=== PATIENT | female | born 1950 | race Caucasian/White ===

== ENCOUNTER → 2016-07-20 | Outpatient (CLI) | payer OTHER | LOC: BRMIMAGING 11:39 | PROVIDERS: ATTEND Internal Medicine | DX: D25.9 Leiomyoma of uterus, unspecified (principal) | CPT/HCPCS: 76856-PO ==

== ENCOUNTER → 2016-10-27 | Outpatient (CLI) | payer OTHER | LOC: BMCIMAGING 08:36 | PROVIDERS: ATTEND Nurse Practitioner Adult Health | DX: Z12.31 Encounter for screening mammogram for malignant neoplasm of breast (principal) | CPT/HCPCS: G0202 ==

== ENCOUNTER → 2016-11-23 | Outpatient (CLI) | payer OTHER | LOC: BMCIMAGING 10:56 | PROVIDERS: ATTEND Nurse Practitioner Adult Health | DX: Z13.820 Encounter for screening for osteoporosis (principal); M81.0 Age-related osteoporosis without current pathological fracture ==

== ENCOUNTER 2017-05-01 14:46 | Emergency (ER) | payer OTHER ==
[2017-05-01 14:51] VITALS: TEMP 97.7; O2SAT 96
--- NOTE | 2017-05-01 14:58 | CPEKG ---
Heart Rate: 64 RR Interval: 938 P-R Interval: 140 QRSD Interval: 90 QT Interval: 388 QTC Interval: 401 P [place]: 18 QRS [place]: 29 T Wave [place]: 35 EKG Severity - NORMAL ECG - EKG Impression: SINUS RHYTHM Electronically Signed By: Iman Weller 01-May-2017 17:54:48
--- NOTE | 2017-05-01 15:07 | EDPHY ---
H & P Time Seen by Provider: 05/01/17 14:56 HPI/ROS: CHIEF COMPLAINT: Chest pain HISTORY OF PRESENT ILLNESS: The patient is a 66 y/o female with a history of CAD complaining of chest pain and an irregular heart beat. She has had an intermittent heart beat for several years, but today it has become more frequent. There are usually 3-4 beats together lasting around 10 seconds, but it is not a rapid rate. Associated with left sided cp while the palpitations last, several seconds. Took Bystolic today with no relief of symptoms. She has been drinking fluids regularly. This past week she also had cold like symptoms with a fever on Wednesday night, 4 days ago. Her cold symptoms have been improving since yesterday. Denies an increase in caffeine use. Denies shortness of breath, weakness or paresthesias, abdominal pain or other pertinent symptoms. During her previous NV it felt like an " "elephant was on her chest" and she had several syncopal episodes. No recent similar sx. Previously diagnosed with PVC's on Holter monitoring. REVIEW OF SYSTEMS: Aside from elements discussed in the HPI, a comprehensive 10-point review of systems was reviewed and is negative. Past Medical/Surgical History: NV, 2 stents Social History: , lives in [place], retired Smoking Status: Former smoker Physical Exam: General Appearance: Alert, no distress Eyes: Pupils equal and round, no conjunctival pallor or injection ENT, Mouth: Mucous membranes moist Neck: Normal inspection Respiratory: Lungs are clear to auscultation Cardiovascular: Regular rate and rhythm Gastrointestinal: Abdomen is soft and non-tender Neurological: A&O, nonfocal, normal gait Skin: Warm and dry, no rash Extremities: Nontender, no pedal edema Psychiatric: Mood and affect normal Constitutional: Initial Vital Signs Temperature (C) 36.5 C 05/01/17 14:48 Heart Rate 77 05/01/17 14:48 Respiratory Rate 16 05/01/17 14:48 Blood Pressure 156/80 H 05/01/17 14:48 O2 Sat (%) 96 05/01/17 14:48 O2 Delivery Mode Room Air Allergies/Adverse Reactions: acetaminophen [From Percocet] Allergy (Verified 05/01/17 14:51) oxycodone HCl [From Percocet] Allergy (Verified 05/01/17 14:51) Home Medications: Medication Instructions Recorded Aspirin [Aspirin 81mg (OTC)] 81 mg PO DAILY 11/16/11 Clopidogrel Bisulfate [Plavix (RX)] 75 mg PO DAILY 11/16/11 Ibandronate Sodium [Boniva] 150 mg PO .QMONTH 01/26/14 Nebivolol HCl [Bystolic] 2.5 mg PO DAILY 01/26/14 Rosuvastatin Calcium [Crestor 10mg 10 mg PO HS 01/26/14 (RX)] Medical Decision Making - Diagnostics EKG Interpretation: EKG interpreted by me reveals normal sinus rhythm with a rate of 64, normal axis , normal intervals, ST and T segments normal. Similar to EKG dated 02/25/2015. Interpretation: normal EKG Imaging Results: Imaging Impressions Chest X-Ray 05/01/17 14:57 Impression: No evidence of acute cardiopulmonary abnormality. Imaging: I viewed and interpreted images myself ED Course/Re-evaluation: The patient is a 66 y/o female with a history of an NV presenting with palpitations. CP limited to few seconds during palpitations. Her symptoms today are not similar to prior cardiac sx. Her physical exam is normal. 1457: Normal EKG interpreted by myself. Chest x-ray does not reveal acute disease. 1600: Reassessed patient and discussed laboratory and imaging findings. leadership program intern reviewed; no ectopy. I have advised her to have a follow-up appointment with Dr. Briscoe, cloth washer. Return precautions provided; patient is comfortable with this plan. Differential Diagnosis: Differential diagnosis includes though it is not limited to atrial fibrillation , PVCs, PACs, pneumonia, pneumothorax, pulmonary embolism, aortic dissection, pericarditis, acute coronary syndrome. - Data Points Laboratory Results: Laboratory Results 05/01/17 15:00 05/01/17 15:00 05/01/17 05/01/17 15:00 15:00 WBC 5.98 10^3/uL 10^3/uL (3.80-9.50) RBC 4.32 10^6/uL 10^6/uL (4.18-5.33) Hgb 13.8 g/dL g/dL (12.6-16.3) Hct 39.5 % % (38.0-47.0) MCV 91.4 fL fL (81.5-99.8) MCH 31.9 pg pg (27.9-34.1) MCHC 34.9 g/dL g/dL (32.4-36.7) RDW 12.0 % % (11.5-15.2) Plt Count 216 10^3/uL 10^3/uL (150-400) MPV 10.0 fL fL (8.7-11.7) Neut % (Auto) 55.3 % % (39.3-74.2) Lymph % (Auto) 32.4 % % (15.0-45.0) Barber % (Auto) 8.4 % % (4.5-13.0) Eos % (Auto) 3.2 % % (0.6-7.6) Baso % (Auto) 0.5 % % (0.3-1.7) Nucleat RBC Rel Count 0.0 % % (0.0-0.2) Absolute Neuts (auto) 3.31 10^3/uL 10^3/uL (1.70-6.50) Absolute Lymphs (auto) 1.94 10^3/uL 10^3/uL (1.00-3.00) Absolute Monos (auto) 0.50 10^3/uL 10^3/uL (0.30-0.80) Absolute Eos (auto) 0.19 10^3/uL 10^3/uL (0.03-0.40) Absolute Basos (auto) 0.03 10^3/uL 10^3/uL (0.02-0.10) Absolute Nucleated RBC 0.00 10^3/uL 10^3/uL (0-0.01) Immature Gran % 0.2 % % (0.0-1.1) Immature Gran # 0.01 10^3/uL 10^3/uL (0.00-0.10) Sodium 137 mEq/L mEq/L (134-144) Potassium 4.1 mEq/L mEq/L (3.5-5.2) Chloride 100 mEq/L mEq/L (97-110) Carbon Dioxide 26 mEq/l mEq/l (22-31) Anion Gap 11 mEq/L mEq/L (8-16) BUN 15 mg/dL mg/dL (7-23) Creatinine 0.9 mg/dL mg/dL (0.6-1.0) Estimated GFR > 60 Glucose 104 mg/dL H mg/dL (70-100) Calcium 9.6 mg/dL mg/dL (8.5-10.4) Departure - Departure Disposition: Home, Routine, Self-Care Clinical Impression: Palpitations Condition: Good Instructions: Palpitations (ED) Additional Instructions: Follow-up with Dr. Briscoe. Return to the Emergency Department for fever, chest pain, shortness of breath, increasing pain or other worsening of condition. Referrals: Susan Mosher NP [Primary Care Provider] - As per Instructions Logan Briscoe MD [Medical Doctor] - As per Instructions Report Scribed for: Iman Weller Report Scribed by: Neema Rojas Date of Report: 05/01/17 Time of Report: 15:07 Physician Review and Approval Statement: 05/01/17 15:07 Portions of this note were transcribed by a medical record administrator. I personally performed a history, physical exam, medical decision making, and confirmed accuracy of information the transcribed note.
[2017-05-01 15:14] LABS: % IMMATURE GRANULYOCYTES 0.2 % (0.0-1.1); ABSOLUTE IMMATURE GRANULOCYTES 0.01 10^3/uL (0.00-0.10); ADD DIFF? NO; ADD MORPH? NO; ADD SCAN? NO; ATYPICAL LYMPHOCYTE FLAG 10 (0-99); FRAGMENT RBC FLAG 0 (0-99); HEMATOCRIT 39.5 % (38.0-47.0); HEMOGLOBIN 13.8 g/dL (12.6-16.3); LEFT SHIFT FLG 0 (0-99); LIPEMIA HEMOLYSIS FLAG 90 (0-99); MEAN CELL HEMOGLOBIN 31.9 pg (27.9-34.1); MEAN CELL HEMOGLOBIN CONCENTR. 34.9 g/dL (32.4-36.7); MEAN CELL VOLUME 91.4 fL (81.5-99.8); PLATELET CLUMPS FLAG 0 (0-99); PLATELET COUNT 216 10^3/uL (150-400); RED BLOOD CELL COUNT 4.32 10^6/uL (4.18-5.33)
[2017-05-01 15:48] LABS: ANION GAP 11 mEq/L (8-16); CALCIUM 9.6 mg/dL (8.5-10.4); CARBON DIOXIDE 26 mEq/l (22-31); CHLORIDE 100 mEq/L (97-110); CREATININE 0.9 mg/dL (0.6-1.0); GLOMERULAR FILTRATION RATE > 60; GLUCOSE 104 mg/dL (70-100); POTASSIUM 4.1 mEq/L (3.5-5.2); SODIUM 137 mEq/L (134-144)
[2017-05-01 16:15] VITALS: BP 144/86; PULSE 78; RESP 18
== END 2017-05-01 16:15 | disposition home or self-care (01) ==
DX: R00.2 Palpitations (principal); I25.2 Old myocardial infarction; Z95.5 Presence of coronary angioplasty implant and graft; Z87.891 Personal history of nicotine dependence; Z79.82 Long term (current) use of aspirin

== ENCOUNTER → 2017-06-08 | Outpatient (CLI) | payer OTHER | LOC: BHFA 13:00 | PROVIDERS: ATTEND Internal Medicine | DX: R07.9 Chest pain, unspecified (principal); I25.10 Atherosclerotic heart disease of native coronary artery without angina pectoris ==

== ENCOUNTER → 2017-11-25 | Outpatient (CLI) | payer OTHER | LOC: BHFA 08:45 | PROVIDERS: ATTEND Physician Assistant | DX: I25.10 Atherosclerotic heart disease of native coronary artery without angina pectoris (principal); I49.1 Atrial premature depolarization; I49.2 Junctional premature depolarization; E78.00 Pure hypercholesterolemia, unspecified; E78.5 Hyperlipidemia, unspecified; R00.2 Palpitations ==

== ENCOUNTER → 2018-02-14 | Outpatient (CLI) | payer OTHER | LOC: BMCIMAGING 09:14 | PROVIDERS: ATTEND Nurse Practitioner Adult Health | DX: J34.9 Unspecified disorder of nose and nasal sinuses (principal) ==

== ENCOUNTER → 2018-02-28 | Outpatient (CLI) | payer OTHER | LOC: BMCIMAGING 11:11 | PROVIDERS: ATTEND Nurse Practitioner Adult Health | DX: J01.00 Acute maxillary sinusitis, unspecified (principal) ==

== ENCOUNTER → 2018-03-04 | Outpatient (CLI) | payer OTHER ==
[~2018-03-04] MED LIST: IOPAMIDOL (ISOVUE-300) 100 ML BTL ONE
== END ==
LOC: FIMAGING 12:22
PROVIDERS: ATTEND Nurse Practitioner Adult Health
DX: J01.80 Other acute sinusitis (principal)
CPT/HCPCS: 70487; Q9967; 82565-PO

== ENCOUNTER → 2018-09-13 | Outpatient (CLI) | payer OTHER | LOC: FIMAGING 09:16 | PROVIDERS: ATTEND Otolaryngology | DX: J01.01 Acute recurrent maxillary sinusitis (principal) | CPT/HCPCS: 70487; Q9967; 82565-PO ==